=== PATIENT | male | born 1985 | race Caucasian/White ===

== ENCOUNTER 2016-10-11 05:36 | Emergency (ER) | payer BC ==
[~2016-10-11] VITALS: Ht 175.3 cm; Wt 77.1 kg
[2016-10-11] MEDS ORDERED: TRAZODONE HCL150 MG ORAL (05:49)
[2016-10-11] MEDS ORDERED: CYMBALTA30 MG ORAL (05:49)
[2016-10-11 05:58] VITALS: BP 125/73
[2016-10-11 06:31] LABS: BASOPHILS % (AUTO) 1.6 % (0.0-2.0); EOSINOPHILS % (AUTO) 1.4 % (0.0-3.0); LYMPHOCYTES % (AUTO) 19.4 % (20.0-45.0); MEAN CORPUSCULAR HEMOGLOBIN 31.4 PG (27.0-31.0); MEAN CORPUSCULAR VOLUME 90 FL (80-99); MEAN PLATELET VOLUME 6.3 FL (6.5-10.1); MONOCYTES % (AUTO) 8.1 % (1.0-10.0); NEUTROPHILS % (AUTO) 69.5 % (45.0-75.0); PLATELET COUNT 203 K/UL (150-450); RED BLOOD COUNT 5.24 M/UL (4.70-6.10); RED CELL DISTRIBUTION WIDTH 11.4 % (11.6-14.8); WHITE BLOOD COUNT 7.4 K/UL (4.8-10.8)
--- NOTE | 2016-10-11 06:31 | Emergency Room Report ---
History of Present Illness General Chief Complaint: Substance Abuse Source: Patient, EMS (WOLF THOMSON M.D.) Present Illness HPI 31-year-old male visits ED for evaluation. Patient was found at his sober living facility agitated this morning. Patient admitted to drug use. History of methamphetamine use. When EMS evaluated the patient patient was very agitated and he gave the patient Versed. Upon arrival patient is feeling somewhat better. Still feels agitated. Denies any chest pain or shortness of breath. Denies any alcohol use. Denies any suicidal homicidal ideation. No other aggravating relieving factors. Denies any other associated symptoms (WOLF THOMSON M.D.) Allergies: Coded Allergies: No Known Allergies (Unverified , 10/11/16) Patient History Past Medical History: none Past Surgical History: none Pertinent Family History: none Social History: Denies: alcohol use, drug use, smoking Immunizations: UTD Reviewed Nursing Documentation: PMH: Agreed, PSxH: Agreed (WOLF THOMSON M.D.) Review of Systems All Other Systems: negative except mentioned in HPI (WOLF THOMSON M.D.) Physical Exam Vital Signs Date Time Temp Pulse Resp B/P Pulse Ox O2 Delivery O2 Flow Rate FiO2 10/11/16 05:43 99.1 68 16 130/69 96 Room Air Sp02 EP Interpretation: reviewed, normal General Appearance: no apparent distress, alert, GCS 15, non-toxic Head: normocephalic, atraumatic Eyes: bilateral eye PERRL, bilateral eye normal inspection ENT: hearing grossly normal, normal pharynx, no angioedema, normal voice Neck: full range of motion, supple/symm/no masses Respiratory: chest non-tender, lungs clear, normal breath sounds, speaking full sentences Cardiovascular #1: regular rate, rhythm, no edema Cardiovascular #2: 2+ carotid (R), 2+ carotid (L), 2+ radial (R), 2+ radial (L) , 2+ dorsalis pedis (R), 2+ dorsalis pedis (L) Gastrointestinal: normal bowel sounds, non tender, soft, non-distended, no guarding, no rebound Rectal: deferred Genitourinary: normal inspection, no CVA tenderness Musculoskeletal: back normal, gait/station normal, normal range of motion, non- tender Neurologic: alert, oriented x3, responsive, motor strength/tone normal, sensory intact, speech normal Psychiatric: judgement/insight normal, memory normal, anxious Reflexes: 3+ bicep (R), 3+ bicep (L), 3+ tricep (R), 3+ tricep (L), 3+ knee (R) , 3+ knee (L) Skin: normal color, no rash, warm/dry, well hydrated Lymphatic: no adenopathy (WOLF THOMSON M.D.) Medical Decision Making Diagnostic Impression: Primary Impression: Substance abuse ER Course Patient is alert coherent and not suicidal. We discussed the need for his return to 12-step program. The patient understands this and is stable for outpatient observation and treatment. (Carlos Alberto Pizano M.D.) Last Vital Signs Date Time Temp Pulse Resp B/P Pulse Ox O2 Delivery O2 Flow Rate FiO2 10/11/16 05:58 99.1 99 16 125/73 96 Room Air (WOLF THOMSON M.D.) Last Vital Signs Date Time Temp Pulse Resp B/P Pulse Ox O2 Delivery O2 Flow Rate FiO2 10/11/16 11:55 98.0 80 18 128/77 99 Room Air Status: improved (Carlos Alberto Pizano M.D.) Disposition: HOME, SELF-CARE - by hospital van to rehab facility - they are aware Condition: Improved WOLF THOMSON M.D. Oct 11, 2016 06:31 Carlos Alberto Pizano M.D. Oct 11, 2016 09:40
[2016-10-11 06:48] VITALS: BP 141/75
[2016-10-11 06:52] LABS: ACETAMINOPHEN < 10 ug/mL (10-30); ALANINE AMINOTRANSFERASE 16 U/L (3-41); ALBUMIN/GLOBULIN RATIO 1.7 (1.0-2.7); ALCOHOL < 10 mg/dL; ANION GAP 19 (5-15); ASPARTATE AMINO TRANSFERASE 18 U/L (5-40); CALCIUM 9.9 mg/dL (8.6-10.2); CARBON DIOXIDE 25 mEQ/L (20-30); CHLORIDE 95 mEQ/L (98-107); CREATININE 1.1 mg/dL (0.7-1.2); GLOMERULAR FILTRATION RATE > 60 mL/min (>60); HEMOLYSIS 7; POTASSIUM 3.6 mEQ/L (3.4-4.9); SODIUM 139 mEQ/L (135-145); TOTAL PROTEIN 7.6 g/dL (6.6-8.7)
[2016-10-11 07:05] VITALS: BP 131/87
[2016-10-11 09:21] VITALS: BP 137/80
[2016-10-11 11:33] VITALS: BP 133/79
[2016-10-11 11:55] VITALS: BP 128/77
== END 2016-10-11 11:55 | disposition home or self-care (01) ==
LOC: EDBD 05:36 → EMR 06:47
DX: F19.10 Other psychoactive substance abuse, uncomplicated (principal)
CPT/HCPCS: 36415; 80053; 80300; 85025; 96360; 99284; G0480; 80329